=== PATIENT | female | born 1970 | race Caucasian/White ===

== ENCOUNTER 2020-11-07 19:20 | Emergency (ER) | payer BC, SELFPAY ==
[2020-11-07 19:52] VITALS: BP 142/95; PULSE 122; RESP 20; TEMP 37.1; O2SAT 96
[2020-11-07 20:55] VITALS: BP 148/92; PULSE 100; RESP 16; TEMP 36.7; O2SAT 95; BMI 35.9
--- NOTE | 2020-11-07 21:20 | ED_ITS ---
HPI - Animal Bite General Chief Complaint: Animal Bite Stated Complaint: Dog bite Time Seen by Provider: 11/07/20 20:55 Source: patient Mode of arrival: ambulatory Limitations: no limitations History of Present Illness HPI narrative: Patient comes emergency room complaining of a dog bite to the left wrist and left palm. Patient states it is her own dog, is up-to-date with immunizations. Patient states this is a rescue dog, has had behavioral issues in the past. Patient states she does not remember when she had her last tetanus shot. Related Data Previous Rx's Medication Instructions Recorded amoxicillin-pot clavulanate 1 tab PO BID #14 tab 11/07/20 [Augmentin] Allergies Allergy/AdvReac Type Severity Reaction Status Date / Time No Known Allergies Allergy Verified 11/07/20 21:02 Review of Systems Review of Systems: Constitutional : No Weight loss, No Fever, No Chills, No Night Sweats, No Fatigue, No Malaise ENT/Mouth : No Hearing loss, No Ear Pain, No Nasal Congestion, No Sinus Pain, No Hoarseness, No sore throat, No Rhinorrhea, No Swallowing Difficulty Eyes: No Eye Pain, No Swelling, No Redness, No Foreign Body, No Discharge, No Vision Changes Cardiovascular : No Chest Pain, No SOB, No Dyspnea on Exertion, No Orthopnea, No Edema, No Palpitations Respiratory : No Cough, No Sputum, No Wheezing, No Smoke Exposure, No Dyspnea Gastrointestinal : No Nausea, No Vomiting, No Diarrhea, No Constipation, No ab dominal Pain, No Hematochezia, No Melena Genitourinary : no irregular bleeding, No Dysuria, No Urinary Frequency, No Hematuria, No Urinary Incontinence, No Urgency, No Flank Pain, No Urinary Flow Changes, No Hesitancy Musculoskeletal : No joint pain, No Myalgias, No Joint Swelling Skin : Multiple puncture/bite wounds to the left hand Neuro : No Weakness, No Numbness, No Paresthesias, No Loss of Consciousness, No Dizziness, No Headache Psych : No Anxiety/Panic, No Depression, No SI/HI/AH/VH, No Social Issues, Heme/Lymph: No Bruising, No Bleeding,No Lymphadenopathy Endocrine : No Polyuria, No Polydipsia, No Temperature Intolerance PMFSH Social History Social History Smoked in Last 30 Days: No Use of substances other than those prescribed or required for medical reasons: No Advance Directives: No Advance Directives Information Provided: No Physical Exam Vital Signs: Vital Signs: Last Vital Signs Temp 98.1 F 11/07/20 20:55 Pulse 100 11/07/20 20:55 Resp 16 11/07/20 20:55 BP 148/92 H 11/07/20 20:55 Pulse Ox 95 11/07/20 20:55 Body Mass Index 35.9 Appearance: Alert. Oriented X3. No acute distress. Eyes: Pupils equal, round and reactive to light. ENT: Pharynx normal. Neck: Normal inspection. Neck supple. No lymph nodes noted. No crepitus CVS: Normal heart rate and rhythm. Pulses normal. Normal S1 and S2 Respiratory: No respiratory distress. Breath sounds normal. No Wheezing. No rales Abdomen: Soft and nontender. No rigidity. No distention. good BS x4 Skin: Skin warm and dry. There is a 3 cm laceration to the left wrist, a puncture wound to the dorsal aspect of the left hand and another puncture wound to the palm of the left hand. Extremities: No lower extremity edema. No lower extremity edema. No Lacerations. No Rash Neuro: Oriented X 3. No motor deficit. No sensory deficit. Moving all extermities. No slurred speech. Course Course Course Narrative: Patient tolerated well the stitches. I discussed with the patient that the laceration in her wrist was not completely closed with stitches, dog bites are usually not sutured. However, because the skin is so far apart, this scan was a front it, but left enough space for drainage. I discussed with the patient if she has any signs of infection to return to the emergency room immediately. Patient received a 1st dose of antibiotic p.o.Augmentin here in the ED Discharge Plan Discharge Clinical Impression: Dog bite Qualifiers: Encounter type: initial encounter Qualified Code(s): W54.0XXA - Bitten by dog, initial encounter Patient Disposition: Home, Self-Care Instructions: Animal Bite (ED) Additional Instructions: If you see any signs of infection such as redness, increased pain, pus drainage, fever or chills, please return to the emergency room immediately. Prescriptions: New amoxicillin-pot clavulanate [Augmentin] 875-125 mg tablet 1 tab PO BID Qty: 14 RF: 0
[2020-11-07] MEDS: Lidocaine HCl 2 % MPF 5 ML VIAL INFILTRATI (21:50)
[2020-11-07] MEDS: Amoxicillin/Potassium Clav 875 MG TABLET PO (21:50)
--- NOTE | 2020-11-07 22:39 | PC.NURSE ---
PT LAC CLEANED AND SUTURED BY DR PRIETO. DSD APPLIED.
== END 2020-11-07 22:40 | disposition home or self-care (01) ==
PROVIDERS: Emergency Provider Emergency Medicine; PCP Nurse Practitioner Family
DX: S61.552A Open bite of left wrist, initial encounter (principal); M25.532 Pain in left wrist; S60.812A Abrasion of left wrist, initial encounter; W54.0XXA Bitten by dog, initial encounter; Y93.9 Activity, unspecified; Y92.9 Unspecified place or not applicable; Y99.9 Unspecified external cause status
CPT/HCPCS: 90471; 90715; 99284